=== PATIENT | male | born 1990 | race African-American/Black ===

== ENCOUNTER 2017-02-04 20:34 | Emergency (ER) | payer SELFPAY ==
[2017-02-04 20:41] VITALS: BP 147/92
--- NOTE | 2017-02-04 21:11 | RAD ---
HISTORY: Facial trauma COMPARISONS: None VIEWS: 3, Aly views of the face, bilateral coned down lateral views of the nasal bones FINDINGS: BONE DENSITY: Normal. BONES: There is a nondisplaced transverse oblique fracture through the nasal bones bilaterally. JOINTS: There is no arthropathy. ALIGNMENT: There is no dislocation. SOFT TISSUES: Unremarkable. OTHER FINDINGS: None. IMPRESSION: NONDISPLACED FRACTURE THROUGH THE NASAL BONES BILATERALLY.
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
== END 2017-02-04 21:27 | disposition home or self-care (01) ==
LOC: UCCORT 20:34
DX: S02.2XXA Fracture of nasal bones, initial encounter for closed fracture (principal); W50.0XXA Accidental hit or strike by another person, initial encounter; Y93.9 Activity, unspecified; Y92.9 Unspecified place or not applicable
CPT/HCPCS: 70160; 99211; G0463

== ENCOUNTER 2017-10-21 21:13 | Emergency (ER) | payer OTHER ==
[2017-10-21 21:35] VITALS: BP 130/82
--- NOTE | 2017-10-21 21:36 | UC ---
Laceration HPI - History Of Current Complaint Stated Complaint: LIP INJURY Time Seen by Provider: 10/21/17 21:31 - Allergies/Home Medications Allergies/Adverse Reactions: Allergies Allergy/AdvReac Type Severity Reaction Status Date / Time No Known Allergies Allergy Verified 10/21/17 21:35 PMH/Surg Hx/FS Hx/Imm Hx - Surgical History Surgical History: None - Family History Known Family History: Negative: Respiratory Disease - Social History Alcohol Use: Occasionally Substance Use Type: None Smoking Status (MU): Never Smoked Tobacco Physical Exam Vital Signs: Initial Vital Signs Temp 98.6 F 10/21/17 21:28 Pulse 77 10/21/17 21:28 Resp 15 10/21/17 21:28 BP 130/82 10/21/17 21:28 Pulse Ox 100 10/21/17 21:28 Discharge - Discharge Plan Referrals: Fransisca Thompson PA [Primary Care Provider] -
== END 2017-10-21 21:44 | disposition home or self-care (01) ==
LOC: UCCORT 21:13
DX: S09.93XA Unspecified injury of face, initial encounter (principal); X58.XXXA Exposure to other specified factors, initial encounter; Y92.9 Unspecified place or not applicable
CPT/HCPCS: 99212; G0463

== ENCOUNTER 2019-07-15 19:30 | Emergency (ER) | payer OTHER ==
[2019-07-15 20:19] VITALS: BP 128/68
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
== END 2019-07-15 21:19 | disposition home or self-care (01) ==
LOC: UCCORT 19:30
DX: S09.92XA Unspecified injury of nose, initial encounter (principal); R04.0 Epistaxis; W50.0XXA Accidental hit or strike by another person, initial encounter; Y93.67 Activity, basketball; Y92.310 Basketball court as the place of occurrence of the external cause
CPT/HCPCS: 99211; G0463

== ENCOUNTER 2019-10-05 16:14 | Emergency (ER) | payer OTHER ==
--- NOTE | 2019-10-05 16:23 | UC ---
Hand/Wrist HPI - HPI Summary HPI Summary: 29 y/o male presents to the urgent care c/o left pinkie injury s/p playing basketball one week ago. Pt report he jammed his pinky finger w/ the ball. He though it was going to get better w/ ice, but swelling at the base of his finger still present and can't completely flex it. Sometime he experiences mild numbness or tingling sensation. Pt denies previous injury. Pt has not taken any medication to alleviate symptoms. Pt denies fever, SOB, chest pain, abdominal pain, N/V/D. - History Of Current Complaint Stated Complaint: LT PINKY FINGER INJURY Time Seen by Provider: 10/05/19 16:22 Hx Obtained From: Patient Onset/Duration: Sudden Onset, Lasting Weeks - 1 week left pinky injury while playing basketball, Still Present, Worse Since - 2 days Severity Initially: Moderate Severity Currently: Moderate Pain Intensity: 6 Pain Scale Used: 0-10 Numeric Character Of Pain: Sharp Aggravating Factor(s): Lifting, Flexion, Pulling Alleviating Factor(s): Rest, Ice Associated Signs And Symptoms: Positive: Swelling - at the base of the pinky finger, Numbness/Tingling - mild at times on the left pinky finger Related History: Dominant Hand Right - Allergies/Home Medications Allergies/Adverse Reactions: Allergies Allergy/AdvReac Type Severity Reaction Status Date / Time No Known Allergies Allergy Verified 10/05/19 16:27 PMH/Surg Hx/FS Hx/Imm Hx Previously Healthy: Yes - Pt denies PMHX - Surgical History Surgical History: None - Family History Known Family History: Positive: None - Pt denies FMHX Negative: Respiratory Disease - Social History Occupation: Employed Full-time Lives: With Family Alcohol Use: Occasionally Substance Use Type: None Smoking Status (MU): Never Smoked Tobacco Review of Systems All Other Systems Reviewed And Are Negative: Yes Constitutional: Positive: Negative Skin: Positive: Other - swelling at the base of left pinky finger s/p injury Eyes: Positive: Negative ENT: Positive: Negative Respiratory: Positive: Negative Cardiovascular: Positive: Negative Gastrointestinal: Positive: Negative Genitourinary: Positive: Negative Motor: Positive: Negative Neurovascular: Positive: Negative Musculoskeletal: Positive: Decreased ROM - left pinky finger, Other: - left pinky finger pain s/p injury while playing basketball Neurological: Positive: Negative Psychological: Positive: Negative Is Patient Immunocompromised?: No Physical Exam - Summary Physical Exam Summary: Vital Signs Reviewed: Yes General: Well developed well nourished male sitting in the examining table w/o any apparent distress Eyes: Positive: Conjunctiva Clear - PERRLA, EOMI ENT: Positive: Normal ENT inspection, Hearing grossly normal, Pharynx normal, TMs normal Neck: Positive: Supple, Nontender, No Lymphadenopathy Respiratory: Positive: Chest non-tender, Lungs clear, Normal breath sounds, No respiratory distress Cardiovascular: Positive: RRR, No Murmur, Pulses Normal, Brisk Capillary Refill Abdomen Description: Positive: Nontender, No Organomegaly, Soft. Negative: CVA Tenderness (R), CVA Tenderness (L) Bowel Sounds: Positive: Present Musculoskeletal: Positive: Strength Intact, No Edema, Left Hand/Fingers: the L hand is without obvious asymmetry or deformity when compared to the R hand. mild swelling around dorsal side of #5 PIPJ w/ poit tenderness at the same area. No erythema, atrophy, or obvious deformity. No surface trauma, open wounds,bony deformity. Normal cascade of fingers. Normal flexion and extension of fingers, except for #5 phalanx due to pain. FDS and FDP intact against resistance. No focal fullness, throbbing pain, swelling of finger tip. Pulses and capillary refill WNL, positive reflexes and sensation intact. Neurological Exam: Normal Psychological Exam: Normal Skin Exam: Normal Triage Information Reviewed: Yes Hand/Wrist Course/Dx - Course Course Of Treatment: 29 y/o male presents to the urgent care c/o left pinkie injury s/p playing basketball one week ago. Pt report he jammed his pinky finger w/ the ball. He though it was going to get better w/ ice, but swelling at the base of his finger still present and can't completely flex it. Sometime he experiences mild numbness or tingling sensation. Pt denies previous injury. Pt has not taken any medication to alleviate symptoms. Pt denies fever, SOB, chest pain, abdominal pain, N/V/D. Hx obtained. Positive mild swelling around RT #5 PIPJ and MCPJ, with ecchymosis and point tenderness on palpation on examination. RT # 5 phalanx X-ray ordered: FINDINGS: There is an oblique minimally displaced fracture extending from the ulnar aspect of the proximal metaphysis obliquely towards the radial aspect of the distal metaphysis. Remaining visualized bones are intact and anatomically aligned. IMPRESSION: MINIMALLY DISPLACED FRACTURE OF THE LEFT SMALL FINGER PROXIMAL PHALANX. Pt' RT finger immobilized with ulnar gutter ortho glass splint by me. left hand Neurovascular intact after splint application Pt given Naproxen PO at the clinic for pain, Rx same medication. Unable to swallow pill, thus he will take tab to take home. Pt advised RICE. Pt given sling to decrease swelling. F/u with Orthopedic Dr Jackson in 1- 2 days for further evaluation and treatment on his fracture.Pt's BP is elevated today advised to decrease salt in diet, monitor BP and f/u with PCP for further management. D/C instructions explained. Pt understood and agreed with plan of care. - Differential Dx/Diagnosis Differential Diagnosis/HQI/PQRI: Abrasion, Contusion, Fracture, Sprain, Strain, Tendonitis Provider Diagnosis: Injury of left little finger, Elevated BP without diagnosis of hypertension, Displaced fracture of proximal phalanx of left little finger Discharge ED - Sign-Out/Discharge Documenting (check all that apply): Patient Departure - D/C home All imaging exams completed and their final reports reviewed: Yes - Discharge Plan Condition: Stable Disposition: HOME Prescriptions: Naproxen TAB* [Naprosyn 250 mg TAB*] 250 mg PO Q8H PRN #30 tab PRN Reason: Pain - Moderate Patient Education Materials: Finger Fracture (ED) Referrals: Fransisca Thompson PA [Primary Care Provider] - 2 Days Gavi Jackson MD [Medical Doctor] - 1 Day Additional Instructions: 1-Please take Naproxen PO q6-8hrs prn after meals as directed to alleviate pain and swelling. 2-Please apply ice, keep your finger immobilized with the splint. use the sling to keep hand elevated to decrease swelling 3- Please f/u with Orthopedic Dr Jackson in 1-2 days for further evaluation and treatment on your finger fracture. 4- Your BP is elevated today advised to decrease salt in diet, monitor BP and f/ u with PCP for further management. - Billing Disposition and Condition Condition: STABLE Disposition: Home
[2019-10-05 16:27] VITALS: BP 144/95
[2019-10-05] MEDS ORDERED: Naproxen TAB* 250 MG PO ONE ×2 (17:08→17:14)
== END 2019-10-05 17:29 | disposition home or self-care (01) ==
LOC: UCCORT 16:14
DX: S62.617A Displaced fracture of proximal phalanx of left little finger, initial encounter for closed fracture (principal); S69.92XA Unspecified injury of left wrist, hand and finger(s), initial encounter; W23.0XXA Caught, crushed, jammed, or pinched between moving objects, initial encounter; Y92.310 Basketball court as the place of occurrence of the external cause; Y93.67 Activity, basketball; R03.0 Elevated blood-pressure reading, without diagnosis of hypertension
CPT/HCPCS: 26720; 73140; 99213; A9270-GY; G0463

== ENCOUNTER 2019-10-08 12:30 | Emergency (ER) | payer OTHER ==
[2019-10-08 12:57] VITALS: BP 124/67
--- NOTE | 2019-10-08 13:59 | UC ---
Hand/Wrist HPI - HPI Summary HPI Summary: fracture left pinkyx 4 days. pt was at the walking 4 days ago with a finger fracture , finger was placed on splint and was referred to ortho. pt. appointment is not until 10/25/19 and he lost his finger splint, cont. to have pain and swelling of the finger. - History Of Current Complaint Chief Complaint: UCUpperExtremity Stated Complaint: LEFT PINKY INJURY Time Seen by Provider: 10/08/19 12:58 Hx Obtained From: Patient Onset/Duration: Sudden Onset, Lasting Days - 4, Still Present Severity Initially: Moderate Severity Currently: Moderate Pain Intensity: 0 Pain Scale Used: 0-10 Numeric Character Of Pain: Aching Aggravating Factor(s): Movement, Lifting, Flexion, Extension Alleviating Factor(s): Rest, Ice Associated Signs And Symptoms: Positive: Swelling, Bruising, Weakness. Negative : Redness, Fever, Numbness/Tingling - Allergies/Home Medications Allergies/Adverse Reactions: Allergies Allergy/AdvReac Type Severity Reaction Status Date / Time No Known Allergies Allergy Verified 10/08/19 12:57 PMH/Surg Hx/FS Hx/Imm Hx Previously Healthy: Yes - Surgical History Surgical History: None - Family History Known Family History: Positive: None - Pt denies FMHX Negative: Respiratory Disease - Social History Alcohol Use: Occasionally Substance Use Type: None Smoking Status (MU): Never Smoked Tobacco Review of Systems All Other Systems Reviewed And Are Negative: Yes Is Patient Immunocompromised?: No Physical Exam Triage Information Reviewed: Yes Appearance: Well-Appearing, No Pain Distress, Well-Nourished Vital Signs: Initial Vital Signs Temp 98.3 F 10/08/19 12:53 Pulse 57 10/08/19 12:53 Resp 16 10/08/19 12:53 BP 124/67 10/08/19 12:53 Pulse Ox 100 10/08/19 12:53 Vital Signs Reviewed: Yes Eye Exam: Normal Eyes: Positive: Conjunctiva Clear ENT: Positive: Normal ENT inspection, Hearing grossly normal, Pharynx normal Neck exam: Normal Neck: Positive: Supple, Nontender Respiratory: Positive: Chest non-tender, Lungs clear, Normal breath sounds Cardiovascular: Positive: RRR, No Murmur, Pulses Normal Musculoskeletal: Positive: Other: - left pinky : + swelling , tenderness proximal finger, limited ROM Hand/Wrist Course/Dx - Differential Dx/Diagnosis Provider Diagnosis: Fracture of phalanx of left little finger Discharge ED - Sign-Out/Discharge Documenting (check all that apply): Patient Departure All imaging exams completed and their final reports reviewed: No Studies - Discharge Plan Condition: Stable Disposition: HOME Patient Education Materials: Finger Fracture (ED) Referrals: Fransisca Thompson PA [Primary Care Provider] - Manuel Erickson MD [Medical Doctor] - 1 Day - Billing Disposition and Condition Condition: STABLE Disposition: Home
== END 2019-10-08 13:13 | disposition home or self-care (01) ==
LOC: UCCORT 12:30
DX: S62.607A Fracture of unspecified phalanx of left little finger, initial encounter for closed fracture (principal); X58.XXXA Exposure to other specified factors, initial encounter; Y92.9 Unspecified place or not applicable
CPT/HCPCS: 99211; G0463